=== PATIENT | male | born 1975 | race Caucasian/White ===

== ENCOUNTER 2023-06-09 15:52 | Emergency (ER) | payer MEDICARE, OTHER ==
[~2023-06-09] VITALS: Ht 177.8 cm; Wt 75.0 kg
[2023-06-09 16:21] VITALS: BP 162/88; PULSE 85; RESP 16; O2SAT 98
== END 2023-06-09 22:31 | disposition left against medical advice (07) ==
LOC: ER 15:52
DX: R56.9 Unspecified convulsions (principal); H54.7 Unspecified visual loss; E78.00 Pure hypercholesterolemia, unspecified; I10 Essential (primary) hypertension
CPT/HCPCS: 99283